=== PATIENT | female | born 1970 | race Caucasian/White ===

== ENCOUNTER 2019-03-05 13:19 | Inpatient (IN) | payer OTHER ==
[2019-03-05] MEDS: LACTATED RINGER'S 1,000 ML IV (14:39)
[2019-03-05 15:00] LABS: ADD MAN DIFF? NO
[2019-03-05 15:04] LABS: BASOPHIL # 0.1 10^3/ul (0.0-0.1); BASOPHILS % 0.8 % (0.0-2.0); EOSINOPHILS # 0.1 10^3/ul (0.0-0.5); EOSINOPHILS % 1.9 % (0.0-7.0); HEMATOCRIT 39.6 % (37.0-47.0); HEMOGLOBIN 13.4 g/dl (12.0-16.0); LYMPHOCYTES # 1.5 10^3/ul (0.8-2.9); MEAN CORPUSCULAR HGB CONC 33.8 g/dl (32.0-37.0); MEAN CORPUSCULAR VOLUME 97.5 fl (82.0-101.0); MEAN PLATELET VOLUME 9.7 fl (7.4-10.4); MONOCYTE # 0.4 10^3/ul (0.3-0.9); MONOCYTES % 6.2 % (0.0-11.0); NEUTROPHIL # 4.3 10^3/ul (1.6-7.5); NEUTROPHILS % 66.9 % (39.0-77.0); PLATELET COUNT 274 10^3/UL (140-415); RED BLOOD COUNT 4.06 10^6/ul (4.20-5.40); RED CELL DISTRIBUTION WIDTH 13.1 % (11.5-14.5)
[2019-03-05 15:04] LABS: WHITE BLOOD COUNT 6.4 10^3/ul (4.8-10.8)
[2019-03-05 15:23] LABS: INR 0.92; PROTIME 12.5 Sec (11.9-14.9)
[2019-03-05 15:24] LABS: ALANINE AMINOTRANSFERASE 20 IU/L (13-69); ALBUMIN/GLOBULIN RATIO 1.29; ALKALINE PHOSPHATASE 80 IU/L (42-121); ANION GAP 7 (5-13); ASPARTATE AMINO TRANSFERASE 27 IU/L (15-46); BILIRUBIN,INDIRECT 0.7 mg/dl (0-1.1); BILIRUBIN,TOTAL 0.7 mg/dl (0.2-1.3); BLOOD UREA NITROGEN 19 mg/dl (7-20); CALCIUM 9.4 mg/dl (8.4-10.2); CARBON DIOXIDE 23 mmol/L (21-31); CHLORIDE 110 mmol/L (97-110); Estimated GFR 49 mL/min (>60); GLUCOSE 90 mg/dl (70-220); PARTIAL THROMBOPLASTIN TIME 28.8 Sec (23.0-35.0); POTASSIUM 3.9 mmol/L (3.5-5.1); SODIUM 140 mmol/L (135-144); TOTAL PROTEIN 7.1 g/dl (6.1-8.1)
[2019-03-05] MEDS ORDERED: ONDANSETRON 4 MG INJ IV ×2 (15:30→20:00)
[2019-03-05] MEDS ORDERED: IPRATROPIUM (NEB) 0.5 MG/2.5 ML AMP HHN (15:30)
[2019-03-05] MEDS ORDERED: HYDROmorphONE 1 MG/5 ML IV SYRINGE IV ×3 (15:30)
[2019-03-05] MEDS ORDERED: MEPERIDINE 25 MG INJ IV (15:30)
[2019-03-05] MEDS ORDERED: DIPHENHYDRAMINE 50 MG INJ IV (15:30)
[2019-03-05] MEDS ORDERED: FENTAnyl 50 MCG/ML VIAL IV ×3 (15:30)
[2019-03-05] MEDS ORDERED: hydrALAzine 20 MG INJ IV (15:30)
[2019-03-05] MEDS ORDERED: LABETALOL HCL 20MG INJ IV (15:30)
[2019-03-05] MEDS ORDERED: ALBUTEROL 0.083% (NEB) 2.5 MG/3 ML AMP HHN (15:30)
[2019-03-05 15:47] LABS: CREATININE 1.16 mg/dl (0.44-1.00)
[2019-03-05] MEDS ORDERED: CEFAZOLIN 1 GM INJ (16:50)
[2019-03-05] MEDS ORDERED: ONDANSETRON 4 MG INJ (17:33)
[2019-03-05] MEDS ORDERED: METOCLOPRAMIDE 10 MG INJ (17:33)
[2019-03-05] MEDS ORDERED: MIDAZOLAM 1 MG/ML 2 ML INJ (17:33)
[2019-03-05] MEDS ORDERED: ROCURONIUM 50 MG INJ ×2 (17:33→18:18)
[2019-03-05] MEDS ORDERED: PROPOFOL 20 ML ×2 (17:33→19:35)
[2019-03-05] MEDS ORDERED: ROPIVACAINE 0.5 % 30 ML VIAL (17:33)
[2019-03-05] MEDS ORDERED: EPHEDrine 25 MG/5 ML SYG (18:08)
[2019-03-05] MEDS: HEPARIN 1000 UNITS/ML 10 ML INJ (18:36)
[2019-03-05] MEDS: THROMBIN 5000 UNIT VIAL (18:36)
[2019-03-05] MEDS: CEFAZOLIN 1 GM INJ (18:36)
[2019-03-05] MEDS ORDERED: HYDROmorphONE 2 MG/ML SYG (18:41)
[2019-03-05] MEDS ORDERED: NACL 0.9% 3 ML SYG IV (19:00)
[2019-03-05] MEDS ORDERED: HYDROCODONE/APAP (5/325) TAB PO (19:00)
[2019-03-05] MEDS ORDERED: NALOXONE (0.4 MG/ML) INJ IV (19:00)
[2019-03-05] MEDS ORDERED: NEOSTIGMINE 3 MG/3 ML SYRINGE (19:36)
[2019-03-05] MEDS ORDERED: GLYCOPYRROLATE 0.4 MG INJ (19:36)
[2019-03-05] MEDS ORDERED: HYDROmorphONE 0.5 MG/0.5 ML SYG IV ×3 (20:00)
[2019-03-05] MEDS ORDERED: DIPHENHYDRAMINE 50 MG INJ (20:07)
[2019-03-05] MEDS ORDERED: MEPERIDINE 100 MG INJ (20:08)
[2019-03-05] MEDS ORDERED: METOPROLOL 5 MG INJ (20:09)
[2019-03-05] MEDS: NS + KCL 20 MEQ 1,000 ML IV (20:40)
[2019-03-05] MEDS: GELATIN SIZE 100 SPONGE (20:52)
[2019-03-05] MEDS: HYDROmorphONE 0.2 MG/ML PCA IV (21:59)
[2019-03-05] MEDS: CEFAZOLIN 2 GM/50 ML (PMX) 50 ML IVPB (22:00)
[2019-03-06] MEDS: HYDROmorphONE 0.2 MG/ML PCA IV ×5 (01:59→21:31)
[2019-03-06 05:24] LABS: ADD MAN DIFF? NO
[2019-03-06 05:25] LABS: BASOPHILS % 0.5 % (0.0-2.0); EOSINOPHILS % 0.5 % (0.0-7.0); HEMATOCRIT 35.1 % (37.0-47.0); LYMPHOCYTES % 13.2 % (15.0-51.0); MEAN CORPUSCULAR HGB CONC 34.2 g/dl (32.0-37.0); MEAN CORPUSCULAR VOLUME 96.4 fl (82.0-101.0); MEAN PLATELET VOLUME 10.2 fl (7.4-10.4); MONOCYTE # 0.6 10^3/ul (0.3-0.9); MONOCYTES % 7.7 % (0.0-11.0); NEUTROPHIL # 5.8 10^3/ul (1.6-7.5); NEUTROPHILS % 77.8 % (39.0-77.0); PLATELET COUNT 251 10^3/UL (140-415); RED BLOOD COUNT 3.64 10^6/ul (4.20-5.40); RED CELL DISTRIBUTION WIDTH 12.9 % (11.5-14.5)
[2019-03-06 05:25] LABS: WHITE BLOOD COUNT 7.4 10^3/ul (4.8-10.8)
[2019-03-06] MEDS: NS + KCL 20 MEQ 1,000 ML IV ×2 (05:33→14:21)
[2019-03-06 05:57] LABS: ANION GAP 5 (5-13); BLOOD UREA NITROGEN 14 mg/dl (7-20); CALCIUM 8.4 mg/dl (8.4-10.2); CARBON DIOXIDE 23 mmol/L (21-31); CHLORIDE 111 mmol/L (97-110); CREATININE 0.89 mg/dl (0.44-1.00); Estimated GFR > 60 mL/min (>60); GLUCOSE 97 mg/dl (70-220); POTASSIUM 3.8 mmol/L (3.5-5.1); SODIUM 139 mmol/L (135-144)
[2019-03-06] MEDS: CEFAZOLIN 2 GM/50 ML (PMX) 50 ML IVPB ×3 (06:16→21:12)
[2019-03-06 06:26] LABS: INR 0.98; PROTIME 13.1 Sec (11.9-14.9)
[2019-03-06] MEDS ORDERED: DESFLURANE 15 MIN (07:00)
[2019-03-06] MEDS ORDERED: THROMBIN 5000 UNIT VIAL (07:06)
[2019-03-06] MEDS ORDERED: GELATIN SIZE 100 SPONGE (07:06)
[2019-03-06] MEDS ORDERED: CEFAZOLIN 1 GM INJ (07:51)
[2019-03-06] MEDS ORDERED: ROCURONIUM 50 MG INJ ×2 (07:51→09:55)
[2019-03-06] MEDS ORDERED: MIDAZOLAM 1 MG/ML 2 ML INJ (07:51)
[2019-03-06] MEDS ORDERED: METOCLOPRAMIDE 10 MG INJ (07:51)
[2019-03-06] MEDS ORDERED: PROPOFOL 20 ML (07:51)
[2019-03-06] MEDS ORDERED: ONDANSETRON 4 MG INJ (07:51)
[2019-03-06] MEDS ORDERED: HYDROmorphONE 2 MG/ML SYG (08:42)
[2019-03-06] MEDS: POLYMYXIN/BACITRACIN 1L IRRIG (08:58)
[2019-03-06] MEDS: ROPIVACAINE 0.5 % 30 ML VIAL (09:15)
[2019-03-06] MEDS ORDERED: GLYCOPYRROLATE 0.4 MG INJ (09:46)
[2019-03-06] MEDS ORDERED: PHENYLephrine (100 MCG/ML) 10ML SYG (09:46)
[2019-03-06] MEDS ORDERED: NEOSTIGMINE 3 MG/3 ML SYRINGE (09:46)
[2019-03-06] MEDS ORDERED: MEPERIDINE 25 MG INJ IV (10:00)
[2019-03-06] MEDS ORDERED: FENTAnyl 50 MCG/ML VIAL IV ×2 (10:00)
[2019-03-06] MEDS ORDERED: ONDANSETRON 4 MG INJ IV (10:00)
[2019-03-06] MEDS ORDERED: hydrALAzine 20 MG INJ IV (10:00)
[2019-03-06] MEDS ORDERED: LABETALOL HCL 20MG INJ IV (10:00)
[2019-03-06] MEDS ORDERED: HYDROmorphONE 0.5 MG/0.5 ML SYG IV ×2 (10:00)
[2019-03-06] MEDS: DIPHENHYDRAMINE 50 MG INJ IV (10:29)
[2019-03-06] MEDS: FENTAnyl 50 MCG/ML VIAL IV (10:55)
[2019-03-06] MEDS: LORAZEPAM 2 MG INJ IV ×3 (11:28→22:43)
[2019-03-06] MEDS ORDERED: LAMOTRIGINE 100 MG TAB PO (11:30)
[2019-03-06] MEDS ORDERED: NON-FORMULARY/PATIENT OWN MED (Eszopiclone (Lunesta) 2 MG) PO (11:30)
[2019-03-06] MEDS ORDERED: ZOLPIDEM 5 MG TAB PO (11:30)
[2019-03-06] MEDS: ALBUTEROL/IPRATROPIUM (NEB) 3 ML AMP HHN (13:08)
[2019-03-06] MEDS: BUDESONIDE (NEB) 0.5MG/2ML AMP INH ×2 (13:13→22:05)
[2019-03-06] MEDS: ARFORMOTEROL TARTRATE 15MCG/2 ML AMP INH ×2 (13:13→22:12)
[2019-03-06] MEDS: TIOTROPIUM 18 MCG CAPSULE INHA DEV INH (14:17)
[2019-03-06] MEDS: HYDROmorphONE 0.5 MG/0.5 ML SYG IV (14:17)
[2019-03-06] MEDS: LAMOTRIGINE 25 MG TAB PO (14:18)
[2019-03-06] MEDS: ATENOLOL 100 MG TAB PO (14:18)
[2019-03-06] MEDS ORDERED: NON-FORMULARY/PATIENT OWN MED (Budesonide-Formoterol Fumarate* (Symbicort*) 2 PUFFS) INHALATION (21:00)
[2019-03-06] MEDS: QUETIAPINE 100 MG TAB PO (21:09)
[2019-03-06] MEDS: clonAZEPAM 0.5 MG TAB PO (21:10)
[2019-03-06] MEDS: MONTELUKAST 10 MG TAB PO (22:43)
[2019-03-07] MEDS: NS + KCL 20 MEQ 1,000 ML IV ×3 (01:06→23:37)
[2019-03-07 05:15] LABS: ADD MAN DIFF? NO
[2019-03-07 05:21] LABS: WHITE BLOOD COUNT 8.9 10^3/ul (4.8-10.8)
[2019-03-07 05:21] LABS: BASOPHILS % 0.5 % (0.0-2.0); EOSINOPHILS # 0.1 10^3/ul (0.0-0.5); EOSINOPHILS % 0.8 % (0.0-7.0); HEMATOCRIT 32.1 % (37.0-47.0); LYMPHOCYTES # 0.8 10^3/ul (0.8-2.9); LYMPHOCYTES % 9.1 % (15.0-51.0); MEAN CORPUSCULAR HEMOGLOBIN 33.4 pg (29.0-33.0); MEAN CORPUSCULAR HGB CONC 34.3 g/dl (32.0-37.0); MEAN CORPUSCULAR VOLUME 97.6 fl (82.0-101.0); MEAN PLATELET VOLUME 10.1 fl (7.4-10.4); MONOCYTE # 0.7 10^3/ul (0.3-0.9); MONOCYTES % 8.1 % (0.0-11.0); NEUTROPHIL # 7.2 10^3/ul (1.6-7.5); PLATELET COUNT 243 10^3/UL (140-415); RED BLOOD COUNT 3.29 10^6/ul (4.20-5.40); RED CELL DISTRIBUTION WIDTH 12.6 % (11.5-14.5)
[2019-03-07] MEDS: CEFAZOLIN 2 GM/50 ML (PMX) 50 ML IVPB ×3 (05:40→21:57)
[2019-03-07 05:52] LABS: ANION GAP 5 (5-13); BLOOD UREA NITROGEN 7 mg/dl (7-20); CALCIUM 8.5 mg/dl (8.4-10.2); CARBON DIOXIDE 23 mmol/L (21-31); CHLORIDE 106 mmol/L (97-110); CREATININE 0.89 mg/dl (0.44-1.00); Estimated GFR > 60 mL/min (>60); GLUCOSE 115 mg/dl (70-220); POTASSIUM 3.9 mmol/L (3.5-5.1); SODIUM 134 mmol/L (135-144)
[2019-03-07] MEDS: HYDROmorphONE 0.2 MG/ML PCA IV ×3 (07:35→20:44)
[2019-03-07] MEDS: ARFORMOTEROL TARTRATE 15MCG/2 ML AMP INH ×2 (08:16→19:38)
[2019-03-07] MEDS: BUDESONIDE (NEB) 0.5MG/2ML AMP INH ×2 (08:16→19:46)
[2019-03-07] MEDS: ATENOLOL 100 MG TAB PO (09:00)
[2019-03-07] MEDS: LAMOTRIGINE 25 MG TAB PO (09:22)
[2019-03-07] MEDS: TIOTROPIUM 18 MCG CAPSULE INHA DEV INH (09:28)
[2019-03-07] MEDS: MONTELUKAST 10 MG TAB PO (20:36)
[2019-03-07] MEDS: ACETAMINOPHEN 325 MG TAB PO (20:36)
[2019-03-07] MEDS: QUETIAPINE 100 MG TAB PO (21:58)
[2019-03-07] MEDS: clonAZEPAM 0.5 MG TAB PO (22:21)
[2019-03-08 05:38] LABS: ADD MAN DIFF? NO
[2019-03-08 05:41] LABS: WHITE BLOOD COUNT 6.7 10^3/ul (4.8-10.8)
[2019-03-08 05:41] LABS: BASOPHILS % 0.4 % (0.0-2.0); EOSINOPHILS # 0.1 10^3/ul (0.0-0.5); EOSINOPHILS % 1.8 % (0.0-7.0); HEMATOCRIT 26.8 % (37.0-47.0); HEMOGLOBIN 9.1 g/dl (12.0-16.0); LYMPHOCYTES # 0.7 10^3/ul (0.8-2.9); LYMPHOCYTES % 10.2 % (15.0-51.0); MEAN CORPUSCULAR HEMOGLOBIN 33.8 pg (29.0-33.0); MEAN CORPUSCULAR VOLUME 99.6 fl (82.0-101.0); MEAN PLATELET VOLUME 10.2 fl (7.4-10.4); MONOCYTE # 0.4 10^3/ul (0.3-0.9); MONOCYTES % 6.1 % (0.0-11.0); NEUTROPHIL # 5.4 10^3/ul (1.6-7.5); NEUTROPHILS % 80.9 % (39.0-77.0); PLATELET COUNT 196 10^3/UL (140-415); RED BLOOD COUNT 2.69 10^6/ul (4.20-5.40); RED CELL DISTRIBUTION WIDTH 12.6 % (11.5-14.5)
[2019-03-08] MEDS: CEFAZOLIN 2 GM/50 ML (PMX) 50 ML IVPB ×3 (05:59→21:49)
[2019-03-08] MEDS: NS + KCL 20 MEQ 1,000 ML IV ×2 (07:00→16:09)
[2019-03-08] MEDS: HYDROmorphONE 0.2 MG/ML PCA IV ×3 (07:18→20:11)
[2019-03-08 07:29] LABS: ADD UMIC NO; UR ASCORBIC ACID NEGATIVE (NEGATIVE); UR BILIRUBIN (Dip) NEGATIVE (NEGATIVE); UR BLOOD (Dip) NEGATIVE (NEGATIVE); UR CLARITY CLEAR (CLEAR); UR COLOR YELLOW (YELLOW); UR GLUCOSE (Dip) NEGATIVE (NEGATIVE); UR KETONES (Dip) 1+ mg/dL (NEGATIVE); UR LEUKOCYTE ESTERASE (Dip) NEGATIVE Leu/ul (NEGATIVE); UR NITRITE (Dip) NEGATIVE (NEGATIVE); UR SPECIFIC GRAVITY (Dip) 1.011 (1.003-1.030); UR TOTAL PROTEIN (Dip) NEGATIVE (NEGATIVE); UR UROBILINOGEN (Dip) NEGATIVE (NEGATIVE)
[2019-03-08 08:44] LABS: BLOOD UREA NITROGEN 5 mg/dl (7-20); CALCIUM 8.3 mg/dl (8.4-10.2); CARBON DIOXIDE 24 mmol/L (21-31); CREATININE 0.76 mg/dl (0.44-1.00); Estimated GFR > 60 mL/min (>60); GLUCOSE 104 mg/dl (70-220); POTASSIUM 3.9 mmol/L (3.5-5.1); SODIUM 138 mmol/L (135-144)
[2019-03-08 08:45] LABS: ANION GAP 7 (5-13); CHLORIDE 107 mmol/L (97-110)
[2019-03-08] MEDS: LAMOTRIGINE 25 MG TAB PO (08:56)
[2019-03-08] MEDS: ATENOLOL 100 MG TAB PO (08:57)
[2019-03-08] MEDS: TIOTROPIUM 18 MCG CAPSULE INHA DEV INH (09:00)
[2019-03-08] MEDS: BUDESONIDE (NEB) 0.5MG/2ML AMP INH ×2 (09:43→22:21)
[2019-03-08] MEDS: ARFORMOTEROL TARTRATE 15MCG/2 ML AMP INH ×2 (09:43→22:21)
[2019-03-08] MEDS: LORAZEPAM 2 MG INJ IV (15:23)
[2019-03-08] MEDS: MONTELUKAST 10 MG TAB PO (21:46)
[2019-03-08] MEDS: QUETIAPINE 100 MG TAB PO (21:46)
[2019-03-08] MEDS: clonAZEPAM 0.5 MG TAB PO (22:02)
[2019-03-09] MEDS: HYDROmorphONE 0.2 MG/ML PCA IV ×2 (06:05→16:05)
[2019-03-09] MEDS: BUDESONIDE (NEB) 0.5MG/2ML AMP INH ×2 (08:02→20:07)
[2019-03-09] MEDS: LAMOTRIGINE 25 MG TAB PO (08:36)
[2019-03-09] MEDS: TIOTROPIUM 18 MCG CAPSULE INHA DEV INH (08:36)
[2019-03-09] MEDS: ATENOLOL 100 MG TAB PO (08:37)
[2019-03-09] MEDS: ARFORMOTEROL TARTRATE 15MCG/2 ML AMP INH ×2 (10:02→20:07)
[2019-03-09] MEDS: LORAZEPAM 2 MG INJ IV (16:01)
[2019-03-09] MEDS ORDERED: PATIENT'S OWN MEDICATION XX (17:30)
[2019-03-09] MEDS: QUETIAPINE 100 MG TAB PO (22:25)
[2019-03-09] MEDS: MONTELUKAST 10 MG TAB PO (22:25)
[2019-03-09] MEDS: clonAZEPAM 0.5 MG TAB PO (22:25)
[2019-03-10] MEDS: HYDROmorphONE 0.2 MG/ML PCA IV ×2 (04:22→15:27)
[2019-03-10] MEDS: ARFORMOTEROL TARTRATE 15MCG/2 ML AMP INH ×2 (07:28→20:13)
[2019-03-10] MEDS: BUDESONIDE (NEB) 0.5MG/2ML AMP INH ×2 (07:28→20:14)
[2019-03-10] MEDS: TIOTROPIUM 18 MCG CAPSULE INHA DEV INH (08:29)
[2019-03-10] MEDS: LAMOTRIGINE 25 MG TAB PO (08:29)
[2019-03-10] MEDS: ATENOLOL 100 MG TAB PO (08:30)
[2019-03-10] MEDS: DIPHENHYDRAMINE 50 MG INJ IV (18:26)
[2019-03-10] MEDS: MONTELUKAST 10 MG TAB PO (20:17)
[2019-03-10] MEDS: QUETIAPINE 100 MG TAB PO (20:17)
[2019-03-10] MEDS: ACETAMINOPHEN 325 MG TAB PO (20:17)
[2019-03-10] MEDS: clonAZEPAM 0.5 MG TAB PO (21:26)
[2019-03-11] MEDS: HYDROmorphONE 0.2 MG/ML PCA IV ×3 (00:18→19:04)
[2019-03-11 06:18] LABS: ADD MAN DIFF? NO
[2019-03-11 06:19] LABS: BASOPHILS % 0.8 % (0.0-2.0); EOSINOPHILS # 0.2 10^3/ul (0.0-0.5); EOSINOPHILS % 4.6 % (0.0-7.0); HEMATOCRIT 29.5 % (37.0-47.0); HEMOGLOBIN 9.8 g/dl (12.0-16.0); LYMPHOCYTES % 19.1 % (15.0-51.0); MEAN CORPUSCULAR HEMOGLOBIN 32.3 pg (29.0-33.0); MEAN CORPUSCULAR HGB CONC 33.2 g/dl (32.0-37.0); MEAN CORPUSCULAR VOLUME 97.4 fl (82.0-101.0); MEAN PLATELET VOLUME 10.5 fl (7.4-10.4); MONOCYTE # 0.4 10^3/ul (0.3-0.9); NEUTROPHIL # 3.4 10^3/ul (1.6-7.5); NEUTROPHILS % 66.9 % (39.0-77.0); PLATELET COUNT 278 10^3/UL (140-415); RED BLOOD COUNT 3.03 10^6/ul (4.20-5.40); RED CELL DISTRIBUTION WIDTH 12.5 % (11.5-14.5)
[2019-03-11 07:13] LABS: ANION GAP 6 (5-13); BLOOD UREA NITROGEN 7 mg/dl (7-20); CALCIUM 9.2 mg/dl (8.4-10.2); CARBON DIOXIDE 27 mmol/L (21-31); CHLORIDE 108 mmol/L (97-110); CREATININE 0.75 mg/dl (0.44-1.00); Estimated GFR > 60 mL/min (>60); GLUCOSE 111 mg/dl (70-220); POTASSIUM 3.7 mmol/L (3.5-5.1); SODIUM 141 mmol/L (135-144)
[2019-03-11 07:21] LABS: ADD UMIC NO; UR ASCORBIC ACID NEGATIVE (NEGATIVE); UR BILIRUBIN (Dip) NEGATIVE (NEGATIVE); UR BLOOD (Dip) NEGATIVE (NEGATIVE); UR CLARITY CLEAR (CLEAR); UR COLOR STRAW (YELLOW); UR GLUCOSE (Dip) NEGATIVE (NEGATIVE); UR KETONES (Dip) NEGATIVE (NEGATIVE); UR LEUKOCYTE ESTERASE (Dip) NEGATIVE Leu/ul (NEGATIVE); UR NITRITE (Dip) NEGATIVE (NEGATIVE); UR SPECIFIC GRAVITY (Dip) 1.003 (1.003-1.030); UR TOTAL PROTEIN (Dip) NEGATIVE (NEGATIVE); UR UROBILINOGEN (Dip) NEGATIVE (NEGATIVE)
[2019-03-11] MEDS: TIOTROPIUM 18 MCG CAPSULE INHA DEV INH (08:57)
[2019-03-11] MEDS: LAMOTRIGINE 25 MG TAB PO (08:57)
[2019-03-11] MEDS: HYDROCORTISONE 1% 28 GM CR TOP (08:57)
[2019-03-11] MEDS: ATENOLOL 100 MG TAB PO (08:58)
[2019-03-11] MEDS: ARFORMOTEROL TARTRATE 15MCG/2 ML AMP INH ×2 (09:40→19:58)
[2019-03-11] MEDS: BUDESONIDE (NEB) 0.5MG/2ML AMP INH ×2 (09:40→19:53)
[2019-03-11] MEDS: DIPHENHYDRAMINE 50 MG INJ IV ×2 (10:21→16:49)
[2019-03-11] MEDS: ACETAMINOPHEN 325 MG TAB PO (20:08)
[2019-03-11] MEDS: clonAZEPAM 0.5 MG TAB PO (21:48)
[2019-03-11] MEDS: MONTELUKAST 10 MG TAB PO (21:48)
[2019-03-11] MEDS: QUETIAPINE 100 MG TAB PO (21:49)
[2019-03-12 06:01] LABS: ADD MAN DIFF? NO
[2019-03-12 06:13] LABS: WHITE BLOOD COUNT 6.3 10^3/ul (4.8-10.8)
[2019-03-12 06:13] LABS: BASOPHILS % 0.6 % (0.0-2.0); EOSINOPHILS # 0.2 10^3/ul (0.0-0.5); EOSINOPHILS % 3.5 % (0.0-7.0); HEMATOCRIT 29.9 % (37.0-47.0); HEMOGLOBIN 9.9 g/dl (12.0-16.0); LYMPHOCYTES # 1.1 10^3/ul (0.8-2.9); LYMPHOCYTES % 17.7 % (15.0-51.0); MEAN CORPUSCULAR HEMOGLOBIN 32.6 pg (29.0-33.0); MEAN CORPUSCULAR HGB CONC 33.1 g/dl (32.0-37.0); MEAN CORPUSCULAR VOLUME 98.4 fl (82.0-101.0); MONOCYTE # 0.7 10^3/ul (0.3-0.9); MONOCYTES % 10.8 % (0.0-11.0); NEUTROPHIL # 4.2 10^3/ul (1.6-7.5); NEUTROPHILS % 66.4 % (39.0-77.0); PLATELET COUNT 312 10^3/UL (140-415); RED BLOOD COUNT 3.04 10^6/ul (4.20-5.40); RED CELL DISTRIBUTION WIDTH 12.2 % (11.5-14.5)
[2019-03-12] MEDS: HYDROmorphONE 0.2 MG/ML PCA IV ×3 (06:45→21:54)
[2019-03-12 07:02] LABS: ANION GAP 6 (5-13); BLOOD UREA NITROGEN 10 mg/dl (7-20); CALCIUM 9.3 mg/dl (8.4-10.2); CARBON DIOXIDE 29 mmol/L (21-31); CHLORIDE 107 mmol/L (97-110); CREATININE 0.95 mg/dl (0.44-1.00); Estimated GFR > 60 mL/min (>60); GLUCOSE 96 mg/dl (70-220); POTASSIUM 4.3 mmol/L (3.5-5.1); SODIUM 142 mmol/L (135-144)
[2019-03-12] MEDS: BUDESONIDE (NEB) 0.5MG/2ML AMP INH ×2 (08:21→20:09)
[2019-03-12] MEDS: ARFORMOTEROL TARTRATE 15MCG/2 ML AMP INH ×2 (08:21→20:09)
[2019-03-12] MEDS: ATENOLOL 100 MG TAB PO (09:00)
[2019-03-12] MEDS: TIOTROPIUM 18 MCG CAPSULE INHA DEV INH (09:49)
[2019-03-12] MEDS: LAMOTRIGINE 25 MG TAB PO (09:49)
[2019-03-12] MEDS: DIPHENHYDRAMINE 50 MG INJ IV ×3 (11:31→23:41)
[2019-03-12] MEDS: HYDROCORTISONE 1% 28 GM CR TOP (15:59)
[2019-03-12] MEDS: clonAZEPAM 0.5 MG TAB PO (21:54)
[2019-03-12] MEDS: MONTELUKAST 10 MG TAB PO (21:54)
[2019-03-12] MEDS: QUETIAPINE 100 MG TAB PO (21:54)
[2019-03-13] MEDS: HYDROmorphONE 0.2 MG/ML PCA IV ×3 (06:21→18:07)
[2019-03-13] MEDS: BUDESONIDE (NEB) 0.5MG/2ML AMP INH ×2 (08:48→21:40)
[2019-03-13] MEDS: ARFORMOTEROL TARTRATE 15MCG/2 ML AMP INH ×2 (08:52→21:40)
[2019-03-13] MEDS: ATENOLOL 100 MG TAB PO (09:48)
[2019-03-13] MEDS: LAMOTRIGINE 25 MG TAB PO (09:48)
[2019-03-13] MEDS: TIOTROPIUM 18 MCG CAPSULE INHA DEV INH (11:43)
[2019-03-13] MEDS: DIPHENHYDRAMINE 50 MG INJ IV ×2 (12:26→21:53)
[2019-03-13] MEDS: MONTELUKAST 10 MG TAB PO (21:52)
[2019-03-13] MEDS: QUETIAPINE 100 MG TAB PO (21:52)
[2019-03-13] MEDS: clonAZEPAM 0.5 MG TAB PO (21:54)
[2019-03-14] MEDS: HYDROmorphONE 0.2 MG/ML PCA IV ×4 (01:28→21:15)
[2019-03-14] MEDS: ARFORMOTEROL TARTRATE 15MCG/2 ML AMP INH ×2 (08:28→21:18)
[2019-03-14] MEDS: BUDESONIDE (NEB) 0.5MG/2ML AMP INH ×2 (08:28→21:18)
[2019-03-14] MEDS: TIOTROPIUM 18 MCG CAPSULE INHA DEV INH (08:40)
[2019-03-14] MEDS: ATENOLOL 100 MG TAB PO (08:40)
[2019-03-14] MEDS: LAMOTRIGINE 25 MG TAB PO (08:40)
[2019-03-14] MEDS: AL HYDROX/MG HYDROX/SIMETH 30 ML CUP PO (12:02)
[2019-03-14] MEDS: DIPHENHYDRAMINE 50 MG INJ IV ×2 (16:17→22:12)
[2019-03-14] MEDS: clonAZEPAM 0.5 MG TAB PO (22:09)
[2019-03-14] MEDS: QUETIAPINE 100 MG TAB PO (22:10)
[2019-03-14] MEDS: MONTELUKAST 10 MG TAB PO (22:10)
[2019-03-15] MEDS: HYDROmorphONE 0.2 MG/ML PCA IV ×3 (06:00→19:37)
[2019-03-15] MEDS: TIOTROPIUM 18 MCG CAPSULE INHA DEV INH (09:17)
[2019-03-15] MEDS: LAMOTRIGINE 25 MG TAB PO (09:17)
[2019-03-15] MEDS: ACETAMINOPHEN 325 MG TAB PO (09:19)
[2019-03-15] MEDS: ARFORMOTEROL TARTRATE 15MCG/2 ML AMP INH ×2 (09:46→19:43)
[2019-03-15] MEDS: BUDESONIDE (NEB) 0.5MG/2ML AMP INH ×2 (09:46→19:43)
[2019-03-15] MEDS: ATENOLOL 100 MG TAB PO (10:00)
[2019-03-15] MEDS: DIPHENHYDRAMINE 50 MG INJ IV ×2 (14:34→21:59)
[2019-03-15] MEDS: QUETIAPINE 100 MG TAB PO (21:59)
[2019-03-15] MEDS: MONTELUKAST 10 MG TAB PO (21:59)
[2019-03-15] MEDS: clonAZEPAM 0.5 MG TAB PO (22:06)
[2019-03-16] MEDS: HYDROmorphONE 0.2 MG/ML PCA IV (03:24)
[2019-03-16] MEDS: ATENOLOL 100 MG TAB PO (08:50)
[2019-03-16] MEDS: TIOTROPIUM 18 MCG CAPSULE INHA DEV INH (08:51)
[2019-03-16] MEDS: LAMOTRIGINE 25 MG TAB PO (08:51)
[2019-03-16] MEDS: ARFORMOTEROL TARTRATE 15MCG/2 ML AMP INH ×2 (09:02→21:05)
[2019-03-16] MEDS: BUDESONIDE (NEB) 0.5MG/2ML AMP INH ×2 (09:03→21:05)
[2019-03-16] MEDS: DIPHENHYDRAMINE 50 MG INJ IV ×2 (09:48→16:17)
[2019-03-16] MEDS: HYDROmorphONE 2 MG TAB PO ×3 (11:09→19:51)
[2019-03-16] MEDS: LORAZEPAM 2 MG INJ IV ×2 (16:17→20:51)
[2019-03-16] MEDS ORDERED: BACLOFEN 10 MG TAB PO (16:30)
[2019-03-16] MEDS: MONTELUKAST 10 MG TAB PO (20:51)
[2019-03-17] MEDS: HYDROmorphONE 2 MG TAB PO ×4 (00:01→16:57)
[2019-03-17] MEDS: DIPHENHYDRAMINE 50 MG INJ IV ×2 (00:06→19:39)
[2019-03-17] MEDS: clonAZEPAM 0.5 MG TAB PO ×2 (00:06→22:49)
[2019-03-17] MEDS: LORAZEPAM 2 MG INJ IV ×4 (03:18→18:21)
[2019-03-17] MEDS: ARFORMOTEROL TARTRATE 15MCG/2 ML AMP INH ×2 (07:45→19:21)
[2019-03-17] MEDS: BUDESONIDE (NEB) 0.5MG/2ML AMP INH ×2 (07:45→19:21)
[2019-03-17] MEDS: ATENOLOL 100 MG TAB PO (09:00)
[2019-03-17] MEDS: LAMOTRIGINE 25 MG TAB PO (09:14)
[2019-03-17] MEDS: TIOTROPIUM 18 MCG CAPSULE INHA DEV INH (09:15)
[2019-03-17 11:42] LABS: ADD MAN DIFF? NO
[2019-03-17 11:45] LABS: WHITE BLOOD COUNT 7.1 10^3/ul (4.8-10.8)
[2019-03-17 11:45] LABS: BASOPHIL # 0.1 10^3/ul (0.0-0.1); BASOPHILS % 0.8 % (0.0-2.0); EOSINOPHILS # 0.2 10^3/ul (0.0-0.5); EOSINOPHILS % 3.4 % (0.0-7.0); HEMATOCRIT 33.7 % (37.0-47.0); HEMOGLOBIN 11.3 g/dl (12.0-16.0); LYMPHOCYTES % 14.1 % (15.0-51.0); MEAN CORPUSCULAR HEMOGLOBIN 31.1 pg (29.0-33.0); MEAN CORPUSCULAR HGB CONC 33.5 g/dl (32.0-37.0); MEAN CORPUSCULAR VOLUME 92.8 fl (82.0-101.0); MEAN PLATELET VOLUME 9.7 fl (7.4-10.4); MONOCYTE # 0.4 10^3/ul (0.3-0.9); MONOCYTES % 5.4 % (0.0-11.0); NEUTROPHIL # 5.3 10^3/ul (1.6-7.5); NEUTROPHILS % 75.2 % (39.0-77.0); PLATELET COUNT 520 10^3/UL (140-415); RED BLOOD COUNT 3.63 10^6/ul (4.20-5.40); RED CELL DISTRIBUTION WIDTH 11.9 % (11.5-14.5)
[2019-03-17 12:06] LABS: ANION GAP 10 (5-13); BLOOD UREA NITROGEN 5 mg/dl (7-20); CALCIUM 9.9 mg/dl (8.4-10.2); CARBON DIOXIDE 23 mmol/L (21-31); CHLORIDE 108 mmol/L (97-110); CREATININE 0.87 mg/dl (0.44-1.00); Estimated GFR > 60 mL/min (>60); GLUCOSE 106 mg/dl (70-220); POTASSIUM 4.2 mmol/L (3.5-5.1); SODIUM 141 mmol/L (135-144)
[2019-03-17] MEDS: QUETIAPINE 100 MG TAB PO ×3 (21:00→22:47)
[2019-03-17] MEDS: MONTELUKAST 10 MG TAB PO ×2 (21:00→22:47)
[2019-03-18] MEDS: HYDROmorphONE 2 MG TAB PO (00:08)
[2019-03-18] MEDS: LORAZEPAM 2 MG INJ IV ×2 (03:48→07:37)
[2019-03-18] MEDS: DIPHENHYDRAMINE 50 MG INJ IV (05:53)
[2019-03-18] MEDS: BUDESONIDE (NEB) 0.5MG/2ML AMP INH (08:03)
[2019-03-18] MEDS: ARFORMOTEROL TARTRATE 15MCG/2 ML AMP INH (08:03)
[2019-03-18] MEDS: OXYCODONE/ACETAMINOPHEN (10/325) TAB PO ×2 (08:30→14:20)
[2019-03-18] MEDS: ATENOLOL 100 MG TAB PO (08:31)
[2019-03-18] MEDS: LAMOTRIGINE 25 MG TAB PO (08:31)
[2019-03-18] MEDS: TIOTROPIUM 18 MCG CAPSULE INHA DEV INH (10:51)
[2019-03-18] MEDS: LORAZEPAM 1 MG TAB PO (10:51)
[2019-03-18] MEDS: DIPHENHYDRAMINE 25 MG CAP PO (10:51)
== END 2019-03-18 15:30 | disposition home or self-care (01) | DRG 454 ==
LOC: REC 13:19 → 6WM 03-07 16:00 → MS1 03-11 12:46 → ICU 20:50
PROC: 0SG00A0 Fusion of Lumbar Vertebral Joint with Interbody Fusion Device, Anterior Approach, Anterior Column, Open Approach (ICD-10-PCS; principal; 2019-03-05 16:00)
PROC: 0SG30K0 Fusion of Lumbosacral Joint with Nonautologous Tissue Substitute, Anterior Approach, Anterior Column, Open Approach (ICD-10-PCS; 2019-03-05 16:00)
PROC: 0SH004Z Insertion of Internal Fixation Device into Lumbar Vertebral Joint, Open Approach (ICD-10-PCS; 2019-03-05 16:00)
PROC: 0SH304Z Insertion of Internal Fixation Device into Lumbosacral Joint, Open Approach (ICD-10-PCS; 2019-03-05 16:00)
PROC: 0SG10K1 Fusion of 2 or more Lumbar Vertebral Joints with Nonautologous Tissue Substitute, Posterior Approach, Posterior Column, Open Approach (ICD-10-PCS; 2019-03-05 17:34)
PROC: 0SP004Z Removal of Internal Fixation Device from Lumbar Vertebral Joint, Open Approach (ICD-10-PCS; 2019-03-05 17:34)
PROC: 0SG30K1 Fusion of Lumbosacral Joint with Nonautologous Tissue Substitute, Posterior Approach, Posterior Column, Open Approach (ICD-10-PCS; 2019-03-05 17:34)
DX: M51.17 Intervertebral disc disorders with radiculopathy, lumbosacral region (principal); T84.84XA Pain due to internal orthopedic prosthetic devices, implants and grafts, initial encounter; I10 Essential (primary) hypertension; J44.9 Chronic obstructive pulmonary disease, unspecified; G47.09 Other insomnia; Z87.828 Personal history of other (healed) physical injury and trauma; Z91.81 History of falling; G89.4 Chronic pain syndrome; L29.9 Pruritus, unspecified; Z87.09 Personal history of other diseases of the respiratory system
CPT/HCPCS: 71045; 72100; 72110; 72131; 80048; 80053; 81003; 85025; 85610; 85730; 86850; 86900; 86901; 86920; 87086; 88300; 88304; 88311; 93005; 94640; 94664; 97116; 97162; 97530

== ENCOUNTER 2019-03-28 12:56 | Emergency (ER) | payer OTHER ==
[2019-03-28] MEDS: ACETAMINOPHEN 500 MG TAB PO (13:45)
[2019-03-28] MEDS ORDERED: OXYCODONE/ACETAMINOPHEN (5/325) TAB PO (14:00)
== END 2019-03-28 14:22 | disposition home or self-care (01) ==
LOC: FTE 12:56
DX: M54.5 Low back pain (principal); J45.909 Unspecified asthma, uncomplicated; I10 Essential (primary) hypertension
CPT/HCPCS: 99282; Z7502